=== PATIENT | male | born 1975 | race Caucasian/White ===

== ENCOUNTER 2022-06-05 08:21 | Emergency (ER) | payer OTHER ==
[~2022-06-05] VITALS: Ht 190.5 cm; Wt 181.4 kg
[2022-06-05] MEDS ORDERED: NAPROXEN375 MG PO (08:47)
[2022-06-05] MEDS ORDERED: BUPROPION HCL150 M2 PO (08:47)
[2022-06-05] MEDS ORDERED: LISINOPRIL5 MG PO (08:48)
[2022-06-05] MEDS ORDERED: CYCLOBENZAPRINE10 MG PO (08:48)
[2022-06-05] MEDS ORDERED: LEVOTHYROXINE75 MCG PO (08:48)
[2022-06-05] MEDS ORDERED: JARDIANCE25 MG PO (08:48)
[2022-06-05] MEDS ORDERED: METFORMIN HCL1000 MG PO (08:48)
[2022-06-05] MEDS ORDERED: TRULICITY1.5 MG/0.5 SUB-Q (08:49)
[2022-06-05] MEDS ORDERED: METHYLPREDNISOLO4 M1 PO (10:40)
[2022-06-05] MEDS ORDERED: HYDROCODON-ACE1 EA11 PO (10:40)
[2022-06-05 11:02] VITALS: BP 151/79
== END 2022-06-05 11:00 | disposition home or self-care (01) ==
LOC: ED 08:21
DX: M51.16 Intervertebral disc disorders with radiculopathy, lumbar region (principal); E11.9 Type 2 diabetes mellitus without complications; Z88.0 Allergy status to penicillin; Z88.1 Allergy status to other antibiotic agents; Z79.899 Other long term (current) drug therapy; Z79.84 Long term (current) use of oral hypoglycemic drugs
CPT/HCPCS: 36415; 80053; 81003; 85025; 85651; 86140; J1100

== ENCOUNTER 2022-09-12 14:56 | Emergency (ER) | payer BC, OTHER ==
[~2022-09-12] VITALS: Ht 190.5 cm; Wt 173.6 kg
[~2022-09-12 14:56] MED LIST: BUPROPION HCL150 M2 PO; CYCLOBENZAPRINE10 MG PO; HYDROCODON-ACE1 EA11 PO; JARDIANCE25 MG PO; LEVOTHYROXINE75 MCG PO; LISINOPRIL5 MG PO; METFORMIN HCL1000 MG PO; METHYLPREDNISOLO4 M1 PO; NAPROXEN375 MG PO; TRULICITY1.5 MG/0.5 SUB-Q
[2022-09-12] MEDS ORDERED: CLEOCIN HCL300 MG PO (15:43)
[2022-09-12 17:49] VITALS: BP 166/91
== END 2022-09-12 17:50 | disposition home or self-care (01) ==
LOC: ED 14:56
DX: L03.116 Cellulitis of left lower limb (principal); E11.9 Type 2 diabetes mellitus without complications; I10 Essential (primary) hypertension; E66.01 Morbid (severe) obesity due to excess calories; Z68.42 Body mass index [BMI] 45.0-49.9, adult; F17.200 Nicotine dependence, unspecified, uncomplicated; Z88.0 Allergy status to penicillin; Z88.1 Allergy status to other antibiotic agents; Z79.899 Other long term (current) drug therapy; Z79.84 Long term (current) use of oral hypoglycemic drugs
CPT/HCPCS: 36415; 80053; 85025; 93971; 96374; 99284-25